=== PATIENT | male | born 2000 | race African-American/Black ===

== ENCOUNTER 2024-08-14 11:47 | Emergency (ER) | payer MEDICAID ==
[~2024-08-14] VITALS: Ht 167.6 cm; Wt 65.8 kg
[2024-08-14 12:01] VITALS: BP 120/70; PULSE 82; RESP 16; TEMP 98.2; O2SAT 100
[2024-08-14] MEDS ORDERED: P20 PO (12:18)
== END 2024-08-14 12:34 | disposition home or self-care (01) ==
LOC: ER 12:33
DX: G51.0 Bell's palsy (principal)
CPT/HCPCS: 99283